=== PATIENT | female | born 1980 | race Caucasian/White ===

== ENCOUNTER 2020-01-27 06:08 | Inpatient (IN) ==
[2020-01-27] MEDS ORDERED: cefOXitin 2,000 MG in Water for inj. (sterile) 20 ML IVP ONE (06:24)
[2020-01-27] MEDS ORDERED: Ringers Solution, Lactated 1,000 ML IVC SCH ×3 (06:30→10:42)
[2020-01-27] MEDS ORDERED: *HR* HYDROmorphone PF 0.5 MG/0.5 ML SYRINGE IVP PRN (06:57)
[2020-01-27] MEDS ORDERED: Ondansetron 4 MG/2 ML VIAL IVP PRN ×2 (06:57→10:42)
[2020-01-27] MEDS ORDERED: *HR* OxyCODONE Immed Rel 5 MG TABLET PO PRN (06:57)
[2020-01-27] MEDS ORDERED: Ketorolac 30 MG/ML VIAL IVP PRN (06:57)
[2020-01-27] MEDS ORDERED: *HR* FentaNYL (PF) 100 MCG/2 ML VIAL ONE (07:13)
[2020-01-27] MEDS ORDERED: *HR* Midazolam HCl 2 MG/2 ML VIAL ONE (07:14)
[2020-01-27] MEDS ORDERED: *HR* Propofol 200 MG/20 ML VIAL IVP ONE ×2 (07:14→07:58)
[2020-01-27] MEDS ORDERED: *HR* Succinylcholine 200 MG/10 ML VIAL IVP ONE (07:16)
[2020-01-27] MEDS ORDERED: Dexamethasone 4 MG/ML VIAL ONE (07:16)
[2020-01-27] MEDS ORDERED: *HR* Rocuronium Bromide 50 MG/5 ML VIAL ONE (07:16)
[2020-01-27] MEDS ORDERED: Lidocaine -MPF 2% 2 ML VIAL ONE (07:16)
[2020-01-27] MEDS ORDERED: Ondansetron 4 MG/2 ML VIAL ONE (07:16)
[2020-01-27] MEDS ORDERED: *HR* PHENYLEPHRINE 1,000 MCG/10 ML SYRINGE IVP ONE (08:04)
[2020-01-27] MEDS ORDERED: Ketorolac 30 MG/ML VIAL ONE (08:31)
[2020-01-27] MEDS ORDERED: Sugammadex Sodium 200 MG/2 ML VIAL IV ONE (08:32)
[2020-01-27] MEDS ORDERED: *HR* HYDROMORPHONE 2 MG/ML VIAL ONE (08:32)
[2020-01-27] MEDS ORDERED: Naloxone 0.4 MG/ML INJ IVP PRN (10:42)
[2020-01-27] MEDS ORDERED: *HR* OxyCODONE/APAP 5/325 TABLET PO PRN (10:42)
[2020-01-27] MEDS ORDERED: Sennosides 8.6 MG TABLET PO PRN (10:42)
[2020-01-27] MEDS: Ibuprofen 600 MG TABLET PO PRN ×2 (13:15→21:32)
[2020-01-28] MEDS: Ibuprofen 600 MG TABLET PO PRN (08:44)
[2020-01-28] MEDS ORDERED: lisinopriL 20 MG TABLET PO SCH (09:00)
[2020-01-28] MEDS ORDERED: hydroCHLOROthiazide 25 MG TABLET PO SCH (09:00)
[2020-01-28 12:01] VITALS: BP 132/85
== END 2020-01-28 15:20 | disposition home or self-care (01) | DRG 519 ==
LOC: SAMDAY 06:08 → 1NENUOBS 10:36
PROVIDERS: ADMIT Student in an Organized Health Care Education/Training Program; ATTEND Student in an Organized Health Care Education/Training Program